=== PATIENT | female | born 1975 | race Caucasian/White ===

== ENCOUNTER 2016-12-26 08:27 | Emergency (ER) | payer OTHER ==
[~2016-12-26] VITALS: Wt 79.0 kg
[~2016-12-26 08:27] MED LIST: ALBU2.5V3 NEB; ALBU8.5H5 INH; AZIT250T94 PO; CIPR500T4 PO; GENT5DRO28 LEFT EYE; HYDR-3498 PO; HYDR-906 PO; PANT40TA3 PO; POLY10DR19 BOTH EYES; PRED20TA PO; TRAM50TA2 PO
[2016-12-26 09:02] LABS: URINE BLOOD (Dip) POC Negative (NEGATIVE)
--- NOTE | 2016-12-26 09:55 | RADRPT ---
PROCEDURE: Retroperitoneal US. CLINICAL INDICATION: Flank pain, dysuria TECHNIQUE: Multiple sonographic images of the kidneys and retroperitoneum were obtained. The imag es were reviewed on a PACS workstation. COMPARISON: 05/22/2016 FINDINGS: The kidneys are normal in size, contour, cortical thickness and cortical echogenicity. The right kidney measures 12.1 cm. The left kidney measures 11.6 cm. No kidney stones are visualized. There is mild bilateral hydronephrosis. The urinary bladder is decompressed and not well seen. RPTAT: AA IMPRESSION: Mild bilateral hydronephrosis. .Sebastian Park MD, MD Date Time Electronically viewed and signed by .Sebastian Park MD, on 12/26/2016 09:55 .S/
[2016-12-26 10:16] LABS: ADD SCAN DIFF NO
[2016-12-26 10:24] LABS: BASOPHILS % 0.5 % (0.0-2.0); EOSINOPHILS # 0.1 10^3/ul (0.0-0.5); HEMATOCRIT 42.5 % (37.0-47.0); HEMOGLOBIN 13.8 g/dl (12.0-16.0); LYMPHOCYTES # 2.1 10^3/ul (0.8-2.9); LYMPHOCYTES % 29.2 % (15.0-51.0); MEAN CORPUSCULAR HEMOGLOBIN 27.8 pg (29.0-33.0); MEAN CORPUSCULAR HGB CONC 32.5 g/dl (32.0-37.0); MEAN CORPUSCULAR VOLUME 85.7 fl (82.0-101.0); MEAN PLATELET VOLUME 10.3 fl (7.4-10.4); MONOCYTE # 0.6 10^3/ul (0.3-0.9); MONOCYTES % 8.4 % (0.0-11.0); NEUTROPHIL # 4.4 10^3/ul (1.6-7.5); NEUTROPHILS % 60.6 % (39.0-77.0); PLATELET COUNT 322 10^3/UL (140-415); RED BLOOD COUNT 4.96 10^6/ul (4.20-5.40); WHITE BLOOD COUNT 7.3 10^3/ul (4.8-10.8)
[2016-12-26 10:28] LABS: ALBUMIN 4.7 g/dl (3.3-4.9); POTASSIUM 3.8 mmol/L (3.5-5.1)
[2016-12-26 10:30] LABS: CREATININE 0.55 mg/dl (0.44-1.00)
[2016-12-26 10:31] LABS: ALBUMIN/GLOBULIN RATIO 1.51; BILIRUBIN,INDIRECT 0.2 mg/dl (0-1.1); BILIRUBIN,TOTAL 0.2 mg/dl (0.2-1.3); CALCIUM 9.2 mg/dl (8.4-10.2); TOTAL PROTEIN 7.8 g/dl (6.1-8.1)
[2016-12-26 10:37] LABS: ADD UMIC NO; URINE BILIRUBIN (Dip) NEGATIVE (NEGATIVE); URINE BLOOD (Dip) NEGATIVE (NEGATIVE); URINE COLOR LT. YELLOW (YELLOW); URINE GLUCOSE (Dip) NEGATIVE (NEGATIVE); URINE KETONES (Dip) NEGATIVE (NEGATIVE); URINE LEUKOCYTE ESTERASE (Dip) NEGATIVE (NEGATIVE); URINE NITRITE (Dip) NEGATIVE (NEGATIVE); URINE TOTAL PROTEIN (Dip) NEGATIVE (NEGATIVE); URINE UROBILINOGEN (Dip) 0.2 E.U./dL (0.1-1.0)
[2016-12-26] MEDS ORDERED: PHEN-538 PO (11:00)
[2016-12-26 11:18] VITALS: TEMP 98.2
--- NOTE | 2016-12-26 11:30 | ERD ---
ER Documentation Chief Complaint Date/Time DATE: 12/26/16 TIME: 11:27 Chief Complaint dysuria and frequency for 2 days. no hematuria noted HPI 11-year-old female presents to the emergency department complaining of painful urination and frequency for the past 2 weeks. She denies any hematuria, denies any abdominal pain or fevers. Patient states that it has been constant. She had took Tylenol without any relief. Patient's past surgeries include C- section she states that she has an allergy to ibuprofen ROS All systems reviewed and are negative except as per history of present illness. Medications Home Meds Active Scripts Phenazopyridine Hcl* (Pyridium*) 200 Mg Tab, 200 MG PO TID Y for URINARY PAIN, # 15 TAB Prov:SEBASTIEN PRYOR PA-C 12/26/16 Hydrocodone/Acetaminophen ([place] 5-325 Tablet) 1 Each Tablet, 1 TAB PO Q6H Y for PAIN, #10 TAB Prov:ANNALISA WALDROP PA-C 05/22/16 Ciprofloxacin Hcl* (Ciprofloxacin Hcl*) 500 Mg Tablet, 500 MG PO BID for 10 Days , TAB Prov:ANNALISA WALDROP PA-C 05/22/16 Hydrocodone Bit-Acetaminophen* ([place]*) 5-325 Mg Tab, 1 TAB PO Q4H Y for PAIN, # 10 TAB Prov:SEBASTIEN PRYOR PA-C 05/09/16 Hydrocodone Bit-Acetaminophen* ([place]*) 5-325 Mg Tab, 1 TAB PO Q6 Y for PAIN, # 16 TAB Prov:BRIANNA PARR MD 02/29/16 Pantoprazole* (Protonix*) 40 Mg Tablet.dr, 40 MG PO DAILY, #30 TAB Prov:BRIANNA PARR MD 02/29/16 Tramadol HCl (Tramadol HCl) 50 Mg Tablet, 50 MG PO Q4 Y for PAIN, #20 TAB Prov:JACKI HARRIS MD 12/05/15 Gentamicin Sulfate* ([place]* Ophth) 0.3% - 5 Ml Drops, 1 DROP LEFT EYE Q4, # 1 EA Prov:ANNALISA WALDROP PA-C 05/10/15 Polymyxin B Sulfate-TMP* (Polymyxin B-TMP Eye Drops*) 10 Ml Drops, 1 DROP BOTH EYES QID for 7 Days, EA Prov:JERRICA VIVAS 05/08/15 Prednisone* (Prednisone*) 20 Mg Tab, 20 MG PO BID for 5 Days Prov:ANNALISA WALDROP PA-C 05/05/15 Albuterol Sulfate* (Albuterol Sulfate* HFA) 8.5 Gm Hfa.aer.ad, 1-2 PUFF INH Q4 Y for SHORTNESS OF BREATH, #1 EA Prov:ANNALISA WALDROP PA-C 05/05/15 Azithromycin* (Zithromax*) 250 Mg Tablet, 250 MG PO .ZPACK DIRECTED, #6 TAB TAKE 500 MG (2 TABS) THE FIRST DAY THEN 250 MG (1 TAB) DAYS 2-5 Prov:ANNALISA WALDROP PA-C 05/05/15 Reported Medications Albuterol Sulfate* (Albuterol Sulfate* Neb) 0.083%-3 Ml Neb, MG NEB Q4H, EA 05/05/15 Allergies Allergies: Coded Allergies: ibuprofen (Verified Allergy, Intermediate, SOB, 12/26/16) PMhx/Soc History of Surgery: Yes (cs x1) Anesthesia Reaction: No Hx Neurological Disorder: No Hx Respiratory Disorders: Yes (asthma) Hx Cardiac Disorders: No Hx Psychiatric Problems: No Hx Miscellaneous Medical Probl: No Hx Alcohol Use: No Hx Substance Use: No Hx Tobacco Use: No Smoking Status: Never smoker Physical Exam Vitals Vital Signs Date Time Temp Pulse Resp B/P Pulse Ox O2 Delivery O2 Flow Rate FiO2 12/26/16 11:18 98.2 12/26/16 08:29 98.8 82 21 133/68 98 Physical Exam GENERAL: well-developed/well-nourished, in no apparent distress, non-toxic appearing HENT: NC/AT, moist mucous membranes EYES: Conjunctiva normal NECK: Supple, no lymphadenopathy PULM: CTA bilaterally, no rales, rhonchi, or wheezing heard CV: Normal S1S2, RRR, good capillary refill GI: Soft, non-distended, non-tender to palpation Normal bowel sounds, no masses or organomegaly felt on exam No gross peritonitis, no bruits Negative Rovsing, negative Rivero, negative McBurney's point, Negative CVAT BACK: No masses EXT: No clubbing, cyanosis, or edema NEURO: Alert and Orientated SKIN: Intact, normal turgor PSYCH: Normal mood and mentation Result Diagram: 12/26/1650 12/26/1650 Results 24 hrs Laboratory Tests Test 12/26/16 09:02 12/26/16 09:50 12/26/16 10:10 Bedside Urine pH (LAB) 6.0 Bedside Urine Protein (LAB) Negative Bedside Urine Glucose (UA) Negative Bedside Urine Ketones (LAB) Negative Bedside Urine Blood Negative Bedside Urine Nitrite (LAB) Negative Bedside Urine Leukocyte Esterase (L Negative White Blood Count 7.310^3/ul Red Blood Count 4.9610^6/ul Hemoglobin 13.8g/dl Hematocrit 42.5% Mean Corpuscular Volume 85.7fl Mean Corpuscular Hemoglobin 27.8pg Mean Corpuscular Hemoglobin Concent 32.5g/dl Red Cell Distribution Width 14.0% Platelet Count 20225^3/UL Mean Platelet Volume 10.3fl Neutrophils % 60.6% Lymphocytes % 29.2% Monocytes % 8.4% Eosinophils % 1.0% Basophils % 0.5% Nucleated Red Blood Cells % 0.0/100WBC Neutrophils # 4.410^3/ul Lymphocytes # 2.110^3/ul Monocytes # 0.610^3/ul Eosinophils # 0.110^3/ul Basophils # 0.010^3/ul Nucleated Red Blood Cells # 0.010^3/ul Sodium Level 139mmol/L Potassium Level 3.8mmol/L Chloride Level 103mmol/L Carbon Dioxide Level 28mmol/L Anion Gap 12 Blood Urea Nitrogen 11mg/dl Creatinine 0.55mg/dl Glucose Level 100mg/dl Calcium Level 9.2mg/dl Total Bilirubin 0.2mg/dl Direct Bilirubin 0.00mg/dl Indirect Bilirubin 0.2mg/dl Aspartate Amino Transf (AST/SGOT) 35IU/L Alanine Aminotransferase (ALT/SGPT) 44IU/L Alkaline Phosphatase 124IU/L Total Protein 7.8g/dl Albumin 4.7g/dl Globulin 3.10g/dl Albumin/Globulin Ratio 1.51 Lipase 113U/L Urine Color LT. YELLOW Urine Clarity CLEAR Urine pH 6.0 Urine Specific [place] <=1.005 Urine Ketones NEGATIVE Urine Nitrite NEGATIVE Urine Bilirubin NEGATIVE Urine Urobilinogen 0.2 E.U./dL Urine Leukocyte Esterase NEGATIVE Urine Hemoglobin NEGATIVE Urine Glucose NEGATIVE% Urine Total Protein NEGATIVE Procedures/MDM This is a 41-year-old female presenting to the emergency room with a chief complaint of dysuria. Differentials include but not limited to urinary tract infection, vaginitis, pyelonephritis, nephrolithiasis. On examination patient appears well with stable vital signs. Patient's urinalysis was normal. CBC did not show any evidence of leukocytosis or anemia. CMP did not show any evidence of renal failure. A prescription of Pyridium was provided. I discussed the patient to follow-up with her primary care physician. At this time since her urinalysis was normal I will not treat for a urinary tract infection. I have given her she injections return to the ER for any worsening signs or symptoms. She understands and agrees with this plan. Pelvic ultrasound: Mild bilateral hydronephrosis. Departure Diagnosis: Primary Impression: Dysuria Condition: Stable Patient Instructions: Dysuria Referrals: DOCTOR,NOT ON STAFF (PCP) Additional Instructions: Visite a [facility] allie moss para un EXAMEN.Regrese a estas instalaciones si no se mejora dorothy esperbamos o dorothy le dijimos. [place] toda la medicina debra y dorothy se le indic. Regrese a estas instalaciones si no se mejora dorothy esperbamos o dorothy le dijimos. SEBASTIEN PRYOR PA-C Dec 26, 2016 11:30
== END 2016-12-26 11:19 | disposition home or self-care (01) ==
LOC: FTE 08:27
DX: R30.0 Dysuria (principal); J45.909 Unspecified asthma, uncomplicated
CPT/HCPCS: 76775; 80053; 81003; 83690; 85025; 87086

== ENCOUNTER 2018-05-19 09:23 | Inpatient (IN) | END 2018-05-20 16:35 | disposition home or self-care (01) | DRG 340 ==

== ENCOUNTER 2018-12-16 02:49 | Emergency (ER) | payer OTHER ==
[~2018-12-16] VITALS: Ht 162.6 cm; Wt 110.6 kg
[~2018-12-16 02:49] MED LIST changes: -ALBU2.5V3 NEB; -AZIT250T94 PO; -CIPR500T4 PO; +DOCU-144 PO; -GENT5DRO28 LEFT EYE; -HYDR-906 PO; -PANT40TA3 PO; -POLY10DR19 BOTH EYES; -PRED20TA PO; -TRAM50TA2 PO
[2018-12-16 02:56] VITALS: Ht 162.6 cm; Wt 110.6 kg
[2018-12-16] MEDS ORDERED: ACETAMINOPHEN 500 MG TAB PO STA (08:19)
[2018-12-16] MEDS ORDERED: ACET500C5 PO (09:54)
--- NOTE | 2018-12-16 10:00 | ERD ---
ER Documentation Chief Complaint Chief Complaint c/o headache/eye burning/back pain since yesterday HPI This is a 43-year-old female who presents to the emergency room with multiple complaints including hot and cold flushing, nausea, eyes burning, headache, back pain since yesterday. Denies cough, denies sore throat, denies fevers. Medical history significant for prediabetes and GERD. ROS All systems reviewed and are negative except as per history of present illness. Medications Home Meds Active Scripts Acetaminophen* (Tylophen*) 500 Mg Capsule, 2 CAP PO Q8H PRN for PAIN AND OR ELEVATED TEMP for 7 Days, #30 CAP Prov:PEPITO ROSAS HEALTH EDUCATION AIDE 12/16/18 Docusate Sodium* (Colace*) 100 Mg Capsule, 100 MG PO DAILY, #30 CAP Prov:SUDHIR FIGUEROA V. HEALTH EDUCATION AIDE 05/20/18 Hydrocodone Bit-Acetaminophen* ([place]*) 5-325 Mg Tab, 1 TAB PO Q4H PRN for PAIN, #10 TAB Prov:SEBASTIEN PRYOR PA-C 05/09/16 Albuterol Sulfate* (Albuterol Sulfate* HFA) 8.5 Gm Hfa.aer.ad, 1-2 PUFF INH Q4 P RN for SHORTNESS OF BREATH, #1 EA Prov:ANNALISA WALDROP PA-C 05/05/15 Allergies Allergies: Coded Allergies: ibuprofen (Verified Allergy, Intermediate, SOB, 12/26/16) PMhx/Soc History of Surgery: Yes (,TONSILLECTOMY) Anesthesia Reaction: No Hx Neurological Disorder: No Hx Respiratory Disorders: No Hx Cardiac Disorders: No Hx Psychiatric Problems: No Hx Miscellaneous Medical Probl: No Hx Alcohol Use: No Hx Substance Use: No Hx Tobacco Use: No Smoking Status: Never smoker FmHx Family History: No diabetes, No coronary disease, No other Physical Exam Vitals Vital Signs Date Temp Pulse Resp B/P (MAP) Pulse Ox O2 O2 Flow FiO2 Time Delivery Rate 12/16/18 98.8 89 18 140/74 98 Room Air 10:08 (96) 12/16/18 99.6 105 18 162/76 98 02:56 (104) Physical Exam General: alert and oriented x4, no acute distress Cardiovascular: tachy rate regular rhythm, normal peripheral perfusion Respiratory: lungs clear to auscultation and percussion, respirations non labored, normal air movement in lung [place] Musculoskeletal: no joint deformity, erythema, or tenderness, full ROM of all joints, normal gait Gastrointestinal: abdomen soft, non-distended, no tenderness to palpation, no guarding, no rebound, positive bowel sounds in all quadrants, no CVT Psychiatric: demonstrates good judgment and reason and normal affect during examination Results 24 hrs Laboratory Tests Test 12/16/18 08:42 12/16/18 08:59 12/16/18 09:01 Bedside Glucose 106 mg/dL Bedside Urine pH (LAB) 6.0 Bedside Urine Protein (LAB) Negative Bedside Urine Glucose (UA) Negative Bedside Urine Ketones (LAB) Negative Bedside Urine Blood Trace-intact Bedside Urine Nitrite (LAB) Negative Bedside Urine Leukocyte Esterase (L Negative POC Beta HCG, Qualitative NEGATIVE Current Medications Medications Dose Sig/Natalie Start Time Status Last (Trade) Ordered Route PRN Stop Time Admin Dose Reason Admin 1,000 mg ONCE STAT 12/16/18 DC 12/16/18 Acetaminophen PO 08: 08:40 (Tylenol 12/16/18 08:25 Tab) Microbiology INFLUENZA A & B BY EIA Final INFLU A&B BY EIA INFLUENZA A NEGATIVE (Ref Range Neg) INFLUENZA B NEGATIVE (Ref Range Neg) Procedures/MDM Is a 43-year-old female who presents to the emergency room with multiple complaints including nausea, headache, burning eyes. Patient was evaluated for influenza, hypo or hyperglycemia, viral syndrome, pneumonia. At the time of discharge, vital signs stable, no respiratory distress. Differential diagnosis include but not limited to: Respiratory infection bacterial/viral/fungal. Influenza, pharyngitis, gastroenteritis, asthma, croup, bronchiolitis, allergies, GERD. Less likely foreign body aspiration, pneumonia . Physical examination and clinical presentation consistent most likely with viral syndrome. During the ED course the patient remained stable. The patient is stable to be treated outpatient and will be discharged home. Antibiotics not indicated at this time. She is provided with prescription for Tylenol instructions on pain and fever control and instructions to increase rest and hydration. Provided with a work note for 2 days. The patient requires a follow up with the primary care provider in the next 3-5 days. If symptoms persist, worsen or new symptoms develop, then patient should return to the ED immediately. Disclaimer: Inadvertent spelling and grammatical errors are likely due to EHR/dictation software use and do not reflect on the overall quality of patient care. Also, please note that the electronic time recorded on this note does not necessarily reflect the actual time of the patient encounter. Departure Diagnosis: Primary Impression: Viral syndrome Additional Impressions: Total body pain Headache Condition: Stable Patient Instructions: Self-Care for Headaches, Viral Syndrome (Adult) Additional Instructions: Thank you very much for allowing us to participate in your care. Your health and safety is our top priority at [facility]. Call your primary care doctor TOMORROW for an appointment during the next 3-5 days and bring all the information and medications prescribed. Have prescriptions filled and follow precisely the directions on the label. If the symptoms get worse and your provider is unavailable, return to the Emergency Department immediately. Today in the emergency department the test for influenza was negative, the exam for urinary tract infection was negative as well. Your symptoms suggest a viral syndrome. Increase rest and hydration. Use Tylenol for fever and headache. Follow-up with your primary caregiver in 3-5 days for reassessment. PEPITO ROSAS NP Dec 16, 2018 10:00
[2018-12-16 10:08] VITALS: BP 140/74; PULSE 89; RESP 18
== END 2018-12-16 10:10 | disposition home or self-care (01) ==
LOC: FTE 02:49
DX: B34.9 Viral infection, unspecified (principal); K08.89 Other specified disorders of teeth and supporting structures
CPT/HCPCS: 81003; 81025; 82962; 87400; Z7502; Z7610; 99283

== ENCOUNTER 2019-01-26 03:52 | Emergency (ER) | payer OTHER ==
[~2019-01-26] VITALS: Ht 157.5 cm; Wt 99.7 kg
[~2019-01-26 03:52] MED LIST changes: +ACET500C5 PO
[2019-01-26 03:54] VITALS: Ht 157.5 cm; Wt 99.7 kg
--- NOTE | 2019-01-26 06:17 | ERD ---
ER Documentation Chief Complaint Chief Complaint ABD PAIN WITH N/V [id number] AGO HPI This is a 43-year-old generally healthy woman complaining of burning epigastric abdominal pain, belching, bloating x2 weeks. She has had similar episodes in the past and has also been diagnosed with GERD in the past. She denies blood per rectum or melena, no fevers or chills, no weight loss, no chest pain or shortness of breath. ROS All systems reviewed and are negative except as per history of present illness. Medications Home Meds Active Scripts Ondansetron Hcl* (Zofran*) 4 Mg Tablet, 4 MG PO Q8H PRN for NAUSEA AND/OR VOMITING, #30 TAB Prov:JUVE ROA MD 01/26/19 Mag Hydrox/Al Hydrox/Simeth (Maalox Advanced Suspension) 355 Ml Oral.susp, 2 TSP PO TID PRN for PAIN, #20 OZ Prov:JUVE ROA MD 01/26/19 Famotidine* (Pepcid*) 20 Mg Tablet, 20 MG PO BID for 14 Days, TAB Prov:JUVE ROA MD 01/26/19 Acetaminophen* (Tylophen*) 500 Mg Capsule, 2 CAP PO Q8H PRN for PAIN AND OR ELEVATED TEMP for 7 Days, #30 CAP Prov:PEPITO ROSAS NP 12/16/18 Docusate Sodium* (Colace*) 100 Mg Capsule, 100 MG PO DAILY, #30 CAP Prov:SUDHIR FIGUEROA NP 05/20/18 Hydrocodone Bit-Acetaminophen* ([place]*) 5-325 Mg Tab, 1 TAB PO Q4H PRN for PAIN, #10 TAB Prov:SEBASTIEN PRYOR PA-C 05/09/16 Albuterol Sulfate* (Albuterol Sulfate* HFA) 8.5 Gm Hfa.aer.ad, 1-2 PUFF INH Q4 PRN for SHORTNESS OF BREATH, #1 EA Prov:ANNALISA WALDROP PA-C 05/05/15 Allergies Allergies: Coded Allergies: ibuprofen (Verified Allergy, Intermediate, SOB, 12/26/16) PMhx/Soc Patient has a history of cholelithiasis and appendectomy, GERD History of Surgery: Yes (,TONSILLECTOMY, APPENDECTOMY 2017) Anesthesia Reaction: No Hx Neurological Disorder: No Hx Respiratory Disorders: No Hx Cardiac Disorders: No Hx Psychiatric Problems: No Hx Miscellaneous Medical Probl: No Hx Alcohol Use: No Hx Substance Use: No Hx Tobacco Use: No Smoking Status: Never smoker FmHx Family History: No diabetes Physical Exam Vitals Vital Signs Date Temp Pulse Resp B/P (MAP) Pulse Ox O2 O2 Flow FiO2 Time Delivery Rate 01/26/19 98.1 76 18 122/65 100 Room Air 07:15 (84) 01/26/19 67 18 109/68 100 Room Air 05:47 (82) 01/26/19 97.2 99 19 119/72 100 03:54 (88) Physical Exam GENERAL: Well-developed, well-nourished, well-hydrated, in no apparent distress, looks nontoxic in appearance HEENT: Moist mucous membranes, pink conjunctiva, no cervical spine tenderness or step-off deformities, no goiter, no jaundice or icterus, extraocular movements intact without pain. No submandibular induration, and no pharyngeal erythema NEURO: Alert and oriented 3, cranial nerves II through XII intact bilaterally, pupils equal round reactive to light, no focal deficits or facial asymmetry, sensation intact distally Strength 5/5 in upper and lower extremities bilaterally CARDIAC: Regular rate and rhythm, no murmurs rubs or gallops LUNGS: Clear bilaterally no wheezing crackles or stridor ABDOMEN: Soft nontender, no guarding, no rigidity, no rebound, no psoas sign no obturator sign. Normoactive bowel sounds SKIN: Warm and dry to touch, no abrasions, contusions, or hematomas, no lacerations, no ecchymosis, no target lesions, and without ulcers EXTREMITIES: No clubbing cyanosis or edema, calves are bilaterally symmetrical, no Homans sign, no popliteal cord sign. Distal pulses equal and bilateral PSYCH: Normal affect without agitation or irritability Result Diagram: 01/26/1941401/26/19414 Results 24 hrs Laboratory Tests Test 01/26/19 04:15 01/26/19 05:03 White Blood Count 8.5 10^3/ul Red Blood Count 5.03 10^6/ul Hemoglobin 13.6 g/dl Hematocrit 41.5 % Mean Corpuscular Volume 82.5 fl Mean Corpuscular Hemoglobin 27.0 pg Mean Corpuscular Hemoglobin Concent 32.8 g/dl Red Cell Distribution Width 14.4 % Platelet Count 334 10^3/UL Mean Platelet Volume 10.2 fl Immature Granulocytes % 0.400 % Neutrophils % 60.2 % Lymphocytes % 26.6 % Monocytes % 10.9 % Eosinophils % 1.2 % Basophils % 0.7 % Nucleated Red Blood Cells % 0.0 /100WBC Immature Granulocytes # 0.030 10^3/ul Neutrophils # 5.1 10^3/ul Lymphocytes # 2.3 10^3/ul Monocytes # 0.9 10^3/ul Eosinophils # 0.1 10^3/ul Basophils # 0.1 10^3/ul Nucleated Red Blood Cells # 0.0 10^3/ul Urine Color YELLOW Urine Clarity SLIGHTLY CLOUDY Urine pH 5.0 Urine Specific [place] 1.021 Urine Ketones NEGATIVE mg/dL Urine Nitrite NEGATIVE mg/dL Urine Bilirubin NEGATIVE mg/dL Urine Urobilinogen NEGATIVE mg/dL Urine Leukocyte Esterase NEGATIVE Dilip/ul Urine Microscopic RBC 2 /HPF Urine Microscopic WBC 3 /HPF Urine Squamous Epithelial Cells FEW /HPF Urine Bacteria FEW /HPF Urine Mucus FEW /HPF Urine Hemoglobin NEGATIVE mg/dL Urine Glucose NEGATIVE mg/dL Urine Total Protein NEGATIVE mg/dl Sodium Level 143 mmol/L Potassium Level 4.2 mmol/L Chloride Level 108 mmol/L Carbon Dioxide Level 25 mmol/L Anion Gap 10 Blood Urea Nitrogen 12 mg/dl Creatinine 0.52 mg/dl Est Glomerular Filtrat Rate mL/min > 60 mL/min Glucose Level 139 mg/dl Calcium Level 9.8 mg/dl Total Bilirubin 0.3 mg/dl Direct Bilirubin 0.00 mg/dl Indirect Bilirubin 0.3 mg/dl Aspartate Amino Transf (AST/SGOT) 27 IU/L Alanine Aminotransferase (ALT/SGPT) 27 IU/L Alkaline Phosphatase 146 IU/L Total Protein 8.0 g/dl Albumin 4.5 g/dl Globulin 3.50 g/dl Albumin/Globulin Ratio 1.28 Lipase 157 U/L POC Beta HCG, Qualitative NEGATIVE Current Medications Medications Dose Sig/Natalie Start Time Status Last (Trade) Ordered Route PRN Stop Time Admin Dose Reason Admin Ondansetron 4 mg ONCE STAT 01/26/19 DC 01/26/19 HCl (Zofran IV 06:22 06:46 Inj) 01/26/19 06:24 Famotidine 20 mg ONCE STAT 01/26/19 DC 01/26/19 (Pepcid) PO 06:22 06:46 01/26/19 06:24 40 ml ONCE STAT 01/26/19 DC 01/26/19 Miscellaneous PO 06:22 06:46 Medication 01/26/19 06:24 (Gi Cocktail (2)) Belladonna/ 2 tab ONCE STAT 01/26/19 DC 01/26/19 Phenobarbital PO 06:22 06:46 () 01/26/19 06:24 Ketorolac 15 mg ONCE STAT 01/26/19 DC 01/26/19 Tromethamine IV 06:22 06:46 (Toradol) 01/26/19 06:24 Procedures/MDM IV line was established patient was placed on personnel monitor rhythm strip revealed a sinus rhythm at about 80 bpm with upright P and T waves. Patient was afebrile EKG performed, read by me revealed a normal sinus rhythm at 85 bpm, normal axis, narrow QRS complex, no concerning ST elevations or depressions noted CBC and electrolytes are normal, liver function tests normal, test negative, urine analysis negative for infection I administered famotidine 20 mg p.o., Zofran 4 mg IV, Toradol 15 mg IV, GI cocktail p.o. Differential diagnoses considered, included but not limited to acute coronary syndrome, pulmonary embolism, aortic dissection, abdominal aortic aneurysm, sepsis, stroke, meningitis, encephalitis, pneumonia, appendicitis, cholecystitis, bowel obstruction, pyelonephritis, nephrolithiasis, cystitis, as well as metabolic, hematologic, and electrolyte abnormalities. As well as abscess, cellulitis, fractures, and dislocations. Patient feels much better at this time, and vital signs are normal, symptoms have improved. I did give strict instructions to return to the ED if symptoms continue or worsen, patient will otherwise follow-up with primary care physician. Patient understood instructions and agreed to plan. Disclaimer: Inadvertent spelling and grammatical errors are likely due to EHR/dictation software use and do not reflect on the overall quality of patient care. Also, please note that the electronic time recorded on this note does not necessarily reflect the actual time of the patient encounter. Departure Diagnosis: Primary Impression: Abdominal pain Abdominal location: epigastric Qualified Codes: R10.13 - Epigastric pain Additional Impression: GERD (gastroesophageal reflux disease) Esophagitis presence: with esophagitis Qualified Codes: K21.0 - Gastro- esophageal reflux disease with esophagitis Condition: Good JUVE ROA MD Jan 26, 2019 06:17
[2019-01-26] MEDS ORDERED: FAMOTIDINE 20 MG TAB PO STA (06:22)
[2019-01-26] MEDS ORDERED: LIDOCAINE/MYLANTA 40 ML BTL PO STA (06:22)
[2019-01-26] MEDS ORDERED: KETOROLAC 15 MG INJ IV STA (06:22)
[2019-01-26] MEDS ORDERED: BELLADONNA/PHENOBARBITAL TAB PO STA (06:22)
[2019-01-26] MEDS ORDERED: ONDANSETRON 4 MG INJ IV STA (06:22)
[2019-01-26] MEDS ORDERED: MAG355OR14 PO (06:48)
[2019-01-26] MEDS ORDERED: FAMO-96 PO (06:48)
[2019-01-26] MEDS ORDERED: ONDA4TAB8 PO (06:48)
[2019-01-26 07:15] VITALS: BP 122/65; PULSE 76; RESP 18
== END 2019-01-26 07:17 | disposition home or self-care (01) ==
LOC: E/R 03:52
DX: K21.0 Gastro-esophageal reflux disease with esophagitis (principal)
CPT/HCPCS: 74018; 74176; 80053; 81001; 81003; 81025; 83690; 85025; 93005; J1885; J2405; Z7610; 36415; 96374; 96375

== ENCOUNTER 2019-05-25 07:14 | Day surgery (SDC) | payer OTHER ==
[~2019-05-25] VITALS: Ht 162.6 cm; Wt 98.3 kg
[~2019-05-25 07:14] MED LIST changes: +FAMO-96 PO; +MAG355OR14 PO; +ONDA4TAB8 PO; +VITAMINS
[2019-05-25 09:40] VITALS: Ht 162.6 cm; Wt 98.3 kg
[2019-05-25 10:32] VITALS: BP 145/90; PULSE 90; RESP 20
[2019-05-25] MEDS ORDERED: PROPOFOL 40 ML ONE (10:53)
[2019-05-25 10:58] VITALS: BP 119/62; PULSE 76; RESP 22
[2019-05-25 11:13] VITALS: BP 91/51; PULSE 66; RESP 18
[2019-05-25 11:18] VITALS: BP 103/72; PULSE 64; RESP 18
[2019-05-25 11:25] VITALS: BP 115/57; PULSE 68; RESP 18
== END 2019-05-25 11:58 | disposition home or self-care (01) ==
LOC: GIL 07:14
PROVIDERS: ATTEND Internal Medicine Gastroenterology
DX: K92.1 Melena (principal); K64.4 Residual hemorrhoidal skin tags; K20.9 Esophagitis, unspecified; K44.9 Diaphragmatic hernia without obstruction or gangrene
CPT/HCPCS: 43235; 45378; Z7610